=== PATIENT | male | born 2000 | race Caucasian/White ===

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

== ENCOUNTER 2021-03-19 08:10 | Outpatient (CLI) | payer OTHER ==
--- NOTE | 2021-03-19 13:20 | MRI Report ---
PROCEDURE: Knee LT W/O INDICATIONS: KNEE PAIN TECHNIQUE: Noncontrast sagittal PD fast spin echo and T2 fast spin echo with fat saturation, sagittal 3-D gradie nt sequence with fat saturation; coronal T1 spin echo and PD fast spin echo with fat saturation, and axial PD fast spin echo with fat saturation through the knee. COMPARISON: None. FINDINGS: Image quality: Excellent. Menisci: The medial and lateral menisci demonstrate normal morphology and internal signal. The meni scal root ligaments appear intact. Cruciate ligaments: The anterior and posterior cruciate ligaments appear intact. Medial structures: The medial collateral ligament appears intact. The posterior oblique ligament, s emimembranosus tendon insertions, and oblique popliteal ligament, and meniscocapsular junction appear intact. Visualized portions of the pes anserinus tendons appear normal. No abnormal bursal fluid. Lateral structures: The lateral collateral ligament, long and short heads of the biceps femoris tend on appear intact. The popliteus tendon appears normal; the popliteofibular ligament appears intact. The posterosuperior and anteroinferior popliteomeniscal fascicles appear intact. The arcuate and fa bellofibular ligaments appear intact, around the lateral inferior geniculate artery. Iliotibial band appears normal. Anterior structures: The quadriceps and patellar tendons appear intact. Patellar alignment is aleksandra l. No femoral trochlear dysplasia or ventral trochlear prominence. No edema in the infrapatellar fa t pad. Bones and cartilage: No bone marrow contusions or fractures. The cartilage of the medial and latera l femorotibial compartments, as well as the patellofemoral compartment, appears normal in thickness. Joint space: There is physiologic knee joint fluid. No Gage's cyst. Normal appearing synovial pli are incidentally noted. IMPRESSION: Unremarkable MRI examination of left knee. No evidence of internal derangement. Reviewed by: Hank Fournier MD on 03/19/2021 1:19 PM PST Approved by: Hank Fournier MD on 03/19/2021 1:19 PM PST Station ID: [id number]
== END 2021-03-19 08:11 | disposition home or self-care (01) ==
LOC: DI 08:10
DX: M25.562 Pain in left knee (principal)

== ENCOUNTER 2022-08-20 08:27 | Emergency (ER) | payer OTHER ==
[2022-08-20 08:35] VITALS: BP 143/89
--- NOTE | 2022-08-20 10:02 | ED Physician Documentation ---
PD HPI HEADACHE - Stated complaint Stated Complaint: ESTRADA,NAUSEA,VOMIT - Chief complaint Chief Complaint: General - History obtained from History obtained from: Patient - History of Present Illness Timing - onset: Yesterday (had onset of right posterior neck pain last evening while driving home. pain has persisted into today and has some light sensitivity and nausea today as well.) Timing - onset during: Light activity (driving home from work.) Timing - details: Abrupt onset, Still present Worst headache ever?: Worst headache ever? (had a single prior migraine type headache in the past but not had occipital/neck pain prior.) Location: Back, Right Quality: Aching (sharp), Stabbing Associated symptoms: Nausea. No: Fever, Weakness, Numbness Worsened by: Light, Noise Contributing factors: No: Recent illness, Trauma Recently seen: Not recently seen Review of Systems Constitutional: denies: Fever, Chills Nose: denies: Rhinorrhea / runny nose, Congestion Throat: denies: Sore throat Skin: denies: Rash, Lesions Neurologic: denies: Focal weakness, Numbness, Altered mental status, Headache PD PAST MEDICAL HISTORY - Past Medical History Cardiovascular: None Respiratory: None Neuro: None Endocrine/Autoimmune: None - Past Surgical History Past Surgical History: Yes HEENT: Tonsil/Adenoidectomy - Present Medications Home Medications: Ambulatory Orders Medication Instructions Recorded Confirmed Cetirizine [ZyrTEC] 10 mg PO DAILY #15 tablet 08/20/22 Fluticasone [Flonase] 1 sprays JORGE ALBERTO BID PRN #16 gm 08/20/22 - Allergies Allergies/Adverse Reactions: Allergies Allergy/AdvReac Type Severity Reaction Status Date / Time No Known Drug Allergies Allergy Verified 11/09/17 10:35 - Social History Does the pt smoke?: No Smoking Status: Never smoker Does the pt drink ETOH?: No Does the pt have substance abuse?: No - Immunizations Immunizations are current?: Yes PD ED PE NORMAL - Vitals Vital signs reviewed: Yes - General General: Alert and oriented X 3, Well developed/nourished - HEENT HEENT: PERRL, EOMI, Ears normal - Neck Neck: Supple, no meningeal sign, No adenopathy, Other (No tenderness at right occipital ridge; actually made it feel a bit better. No rash nor redness. ) - Cardiac Cardiac: RRR, No murmur - Respiratory Respiratory: Clear bilaterally Results - Vitals Vitals: Vital Signs - 24 hr 08/20/22 08:31 Temperature 36.4 C L Heart Rate 80 Respiratory 18 Rate Blood Pressure 143/89 H O2 Saturation 98 Oxygen O2 Source Room air - Rads (name of study) head CT Relevant Findings:: Prelim report reviewed (no ICH nor acute process. ), EMP independent interpretation of test PD Medical Decision Making - ED course Complexity details: reviewed results, considered differential (abrupt posterior headache with now migraine type symptoms. Concern for SAH/ICH. Will get CT. Does not seem infectious. No injury. I do not feel like labs would be useful. ), d/w patient Departure - Departure Disposition: 01 Home, Self Care Clinical Impression: Acute headache, Sphenoidal sinusitis Condition: Stable Record reviewed to determine appropriate education?: Yes Instructions: ED Cephalgia Unspecified Follow-Up: ADAM HARDY MD [Primary Care Provider] - Prescriptions: Fluticasone [Flonase] 1 sprays JORGE ALBERTO BID PRN #16 gm PRN Reason: Nasal Congestion Cetirizine [ZyrTEC] 10 mg PO DAILY #15 tablet Comments: Your CT scan does not show any acute abnormalities. In particular no signs of bleeding swelling or tumors. In the facial area they do see the inflammation of the sphenoid sinus on the right. I do not think the sinus inflammation can account for your acute symptoms. It can account for some of the facial pressure you are feeling. I would suggest fluticasone spray nasally and cetirizine antihistamine for the next week or 2. Regarding the neck/headache and nausea and light sensitivity, it does sound likely migraine type headache. If these are infrequent and mild then no further assessment needed per se. Follow-up with your primary care if any pattern of more frequent episodes in the near future. Tylenol or ibuprofen if needed for pains. Discharge Date/Time: 08/20/22 12:09
[2022-08-20] MEDS ORDERED: ONDANSETRON ODT 4 MG TABLET TL STA (10:41)
[2022-08-20] MEDS ORDERED: ACETAMINOPHEN 325 MG TABLET PO STA (10:41)
[2022-08-20] MEDS ORDERED: IBUPROFEN 600 MG TABLET PO STA (10:41)
--- NOTE | 2022-08-20 11:02 | CT Report ---
PROCEDURE: HEAD WO INDICATIONS: abrupt headache last evening, continued today TECHNIQUE: Noncontrast 4.5 mm thick angled axial sections acquired from the foramen magnum to the vertex. For r adiation dose reduction, the following was used: automated exposure control, adjustment of mA and/or kV according to patient size. COMPARISON: None. FINDINGS: Image quality: Excellent. CSF spaces: Basal cisterns are patent. No extra-axial fluid collections. Ventricles are normal in size and shape. Brain: No midline shift. No intracranial masses or hemorrhage. Cherry-white matter interface is norm al. Skull and face: Calvarium and visualized facial bones are intact, without suspicious lesions. Sinuses: There is near complete opacification of the right sphenoid sinus and sphenoid sinus outflow tract. The visible portions of the ethmoid air cells are relatively clear. Maxillary sinuses are not seen. Mastoid cavities are normally aerated. IMPRESSION: 1. No CT evidence of acute intracranial process. 2. Right sphenoid sinus disease. Chronicity is uncertain. Reviewed by: Aneta Velazquez MD on 08/20/2022 10:01 AM SURENDRA Approved by: Aneta Velazquez MD on 08/20/2022 10:01 AM SURENDRA Station ID: [id number]
== END 2022-08-20 12:09 | disposition home or self-care (01) ==
LOC: ED 08:27
DX: J32.3 Chronic sphenoidal sinusitis (principal); R51.9 Headache, unspecified
CPT/HCPCS: 70450; 99281; 99284; A9270; Q0162